=== PATIENT | male | born 1995 | race Caucasian/White ===

== ENCOUNTER 2016-12-09 08:55 | Emergency (ER) | payer BC ==
[2016-12-09] MEDS ORDERED: Acetaminophen TAB* 325 MG PO ONE (10:39)
--- NOTE | 2016-12-09 10:46 | UC ---
FLU HPI - HPI Summary HPI Summary: 21 male presents with complaints of fever/chills, body aches, cough, sinus pressure, nasal congestion and mild sore throat that began Friday morning . Mother states his temperature yesterday morning to be 101 F and this morning 103 F. He also has general malaise. Also complains of feeling like something is stuck in his throat and pressure behind his eye. Took ibuprofen last dose around 7am this morning and had some relief. Denies nausea, vomiting, diarrhea and difficulty breathing. No known sick contacts. Did not have the the flu shot. - History of Current Complaint Chief Complaint: UCGeneralIllness Stated Complaint: FEVER COUGH SORE THROAT Time Seen by Provider: 12/09/16 09:56 Hx Obtained From: Patient, Family/Ski Instructor - mother Onset/Duration: Sudden Onset, Worse Since Severity Currently: Mild Severity Initially: Moderate Pain Intensity: 4 Pain Scale Used: 0-10 Numeric Associated Signs & Symptoms: Positive: Fever, T Max - 103, Myalgia, Cough, Sore Throat, Nasal Congestion - sinus pressure, Headache - Allergy/Home Medications Allergies/Adverse Reactions: Allergies Allergy/AdvReac Type Severity Reaction Status Date / Time Codeine Allergy Severe Hives Verified 04/16/14 14:30 opiates Allergy Unknown See Comment Uncoded 12/09/16 10:03 Home Medications: Home Medications Ibuprofen TAB* [Motrin TAB* 800 MG] 800 mg PO Q24HR PRN 12/09/16 [History Confirmed 12/09/16] [id number]-[id number] [Nyquil Severe Cold/Flu 5-6.25-10-325 mg/15Ml] 1 liq PO QPM PRN 12/09/16 [History Confirmed 12/09/16] PMH/Surg Hx/FS Hx/Imm Hx Endocrine History Of: Denies: Diabetes, Thyroid Disease Cardiovascular History Of: Denies: Cardiac Disorders, Hypertension, Pacemaker/ICD Respiratory History Of: Reports: Asthma - as child Denies: COPD GI/ History Of: Denies: Ulcer - Surgical History Surgical History: None Surgery Procedure, Year, and Place: T & A - Family History Known Family History: Positive: None - Social History Alcohol Use: None Substance Use Type: None Smoking Status (MU): Never Smoked Tobacco Have You Smoked in the Last Year: No - Immunization History Vaccination Up to Date: Yes Review of Systems Constitutional: Fever, Chills, Fatigue Skin: Negative Eyes: Negative ENT: Sore Throat, Ear Ache, Nasal Discharge, Other - pressure behind the eyes and sinuses Respiratory: Cough - productive with phlegm, no color Cardiovascular: Negative Gastrointestinal: Negative Genitourinary: Negative Motor: Negative Musculoskeletal: Myalgia Neurological: Headache Psychological: Negative All Other Systems Reviewed And Are Negative: Yes Physical Exam Triage Information Reviewed: Yes Appearance: No Pain Distress, Well-Nourished, Ill-Appearing Vital Signs: Initial Vital Signs Temp 99.1 F 12/09/16 09:54 Pulse 118 12/09/16 09:54 Resp 18 12/09/16 09:54 BP 109/65 12/09/16 09:54 Pulse Ox 96 12/09/16 09:54 tachycardia noted. Vital Signs Reviewed: Yes Eyes: Positive: Conjunctiva Clear ENT: Positive: Normal ENT inspection, Hearing grossly normal, Pharyngeal erythema, Nasal congestion, Nasal drainage, TMs normal. Negative: TM red, Tonsillar swelling, Tonsillar exudate Dental: Positive: Percussion Tenderness @ - frontal and maxillary sinuses, Cervical Lymphadenopathy Neck: Positive: Supple, Nontender Respiratory: Positive: Chest non-tender, Lungs clear, Normal breath sounds, No respiratory distress, No accessory muscle use Cardiovascular: Positive: RRR, No Murmur, Pulses Normal, Brisk Capillary Refill Abdominal Exam: Normal Abdomen Description: Positive: Nontender, No Organomegaly, Soft Bowel Sounds: Positive: Present Musculoskeletal: Positive: Strength Intact, ROM Intact Neurological Exam: Normal Psychological Exam: Normal Skin Exam: Normal Flu Course/Dx - Course Course Of Treatment: given dose of tylenol due to last dose being around 7 am to keep fever down. influenxa culture obtained and was positive. with symptoms beginning less than 48 hours ago will be treated with Tamiflu. Continue Ibuprofen/Tylenol strictly every 4 hours for fever. - Differential Dx/Diagnosis Differential Diagnosis/HQI/PQRI: Bronchitis, Influenza, Upper Respiratory Infection, Other - sinusitis Provider Diagnoses: influenza A Discharge - Discharge Plan Condition: Stable Disposition: HOME Prescriptions: Oseltamivir CAP* [Tamiflu CAP*] 75 mg PO BID #10 cap Patient Education Materials: Influenza (ED) Forms: *School Release Referrals: Renny Cedillo MD [Primary Care Provider] - Additional Instructions: Take prescribed Tamiflu for the next 5 days. Continue taking Tylenol/Ibuprofen for the next few days every 4 hours for fever and aches. You may alternate them. Get plenty of rest and drink plenty of fluids. Remember the flu is very contagious, wash hands frequently.
[2016-12-09 11:12] VITALS: BP 121/77
== END 2016-12-09 11:20 | disposition home or self-care (01) ==
LOC: UCCORT 08:55
DX: J10.1 Influenza due to other identified influenza virus with other respiratory manifestations (principal); Z88.5 Allergy status to narcotic agent
CPT/HCPCS: 87502; 99212; A9270-GY; G0463

== ENCOUNTER 2019-08-02 12:26 | Emergency (ER) | payer BC, OTHER ==
[2019-08-02 13:57] VITALS: BP 127/67
--- NOTE | 2019-08-02 14:29 | UC ---
Skin Complaint HPI - HPI Summary HPI Summary: 24-year-old male presents with complaints of a tick bite to the top of his head. States he discovered the tick last evening and removed immediately. Reports he was last in the [place]. Tick was not engorged at time of removal. Denies fever, chills, rash, flu-like illness, fatigue, muscle aches, joint pain or swelling. - History of Current Complaint Chief Complaint: UCSkin Time Seen by Provider: 08/02/19 14:19 Stated Complaint: TICK BITE Hx Obtained From: Patient Pain Intensity: 0 - Allergy/Home Medications Allergies/Adverse Reactions: Allergies Allergy/AdvReac Type Severity Reaction Status Date / Time codeine Allergy Hives Verified 08/02/19 13:58 opiate Allergy Hives Uncoded 08/02/19 13:58 Home Medications: Home Medications NK [No Home Medications Reported] 08/02/19 [History Confirmed 08/02/19] PMH/Surg Hx/FS Hx/Imm Hx Previously Healthy: Yes - Denies significant PMH - Surgical History Surgical History: Yes Surgery Procedure, Year, and Place: T & A - Family History Known Family History: Positive: Non-Contributory - Social History Occupation: Student Lives: With Family Alcohol Use: None Substance Use Type: None Smoking Status (MU): Never Smoked Tobacco Have You Smoked in the Last Year: No - Immunization History Vaccination Up to Date: Yes Review of Systems All Other Systems Reviewed And Are Negative: Yes Constitutional: Negative: Fever, Chills Skin: Negative: Rash Respiratory: Positive: Negative Cardiovascular: Positive: Negative Gastrointestinal: Positive: Negative Genitourinary: Positive: Negative Musculoskeletal: Negative: Arthralgia, Myalgia Neurological: Positive: Negative Is Patient Immunocompromised?: No Physical Exam - Summary Physical Exam Summary: GENERAL APPEARANCE: Well developed, well nourished, alert and cooperative, and appears to be in no acute distress. HEAD: Atraumatic. Normocephalic. No lesions or rashes noted to scalp. CARDIAC: Normal S1 and S2. No S3, S4 or murmurs. Rhythm is regular. There is no peripheral edema, cyanosis or pallor. Extremities are warm and well perfused. Capillary refill is less than 2 seconds. Peripheral pulses intact. LUNGS: Clear to auscultation without rales, rhonchi, wheezing or diminished breath sounds. ABDOMEN: Positive bowel sounds. Soft, nondistended, nontender. No guarding or rebound. No masses or hepatosplenomegally. MUSKULOSKELETAL: ROM intact to all extremities. No joint erythema or tenderness. Normal muscular development. Normal gait. SKIN: Skin normal color, texture and turgor with no lesions or eruptions. Triage Information Reviewed: Yes Vital Signs: Initial Vital Signs Temp 97.8 F 08/02/19 13:54 Pulse 59 08/02/19 13:54 Resp 16 08/02/19 13:54 BP 127/67 08/02/19 13:54 Pulse Ox 100 08/02/19 13:54 Vital Signs Reviewed: Yes Course/Dx - Course Course Of Treatment: 24-year-old male presents with complaints of a tick bite to the top of his head. States he discovered the tick last evening and removed immediately. Reports he was last in [place]. Tick was not engorged at time of removal. Denies fever, chills, rash, flu-like illness, fatigue, muscle aches, joint pain or swelling. Afebrile. Vital signs stable. Patient's exam was overall unremarkable. Discussed the patient that based on his history that there was an extremely small chance of transmission of Lyme disease and therefore recommending watchful waiting at this time. He is to follow-up with his primary care provider as needed. I reviewed the signs and symptoms of Lyme disease, anticipatory guidance, and warning symptoms with the patient. Verbalizes understanding and agrees with plan of care. - Differential Diagnoses - Skin Complaint Differential Diagnoses: Local Allergic Reaction, Tick Born Illness - Diagnoses Provider Diagnosis: Tick bite of scalp Discharge ED - Sign-Out/Discharge Documenting (check all that apply): Patient Departure All imaging exams completed and their final reports reviewed: No Studies - Discharge Plan Condition: Stable Disposition: HOME Patient Education Materials: Tick Bite (ED) Referrals: Renny Cedillo MD [Primary Care Provider] - If Needed Additional Instructions: Ticks transmit infection only after they have attached and then taken a blood meal from their new host. A tick that has not attached cannot not pass any infection. Since the deer tick that transmits Lyme disease typically feeds for more than 36 hours before transmitting the organisim that causes Lyme disease, the risk of acquiring Lyme disease from an tick bite is extremely small, even in an area where the disease is common. There is no benefit of blood testing for Lyme disease at the time of the tick bite because even people who become infected will not have a positive blood test until approximately two to six weeks after the tick bite. To try to avoid getting bitten by a tick, you can: * Wear shoes, long-sleeved shirts, and long pants when you go outside. Keep ticks away from your skin by tucking your pants into your socks. * Wear light colors so you can spot any ticks that get on your clothes. * Wear bug spray or cream that contains DEET. (Do not use DEET on babies younger than 2 months.) On your clothes and gear, you can use bug repellents that have a chemical called "permethrin." * Shower within 2 hours of being outdoors if you think you have been in an area where there are ticks. * Put dry clothes briefly (for about 4 minutes) in a dryer after being outdoors. * Check your clothes and body for ticks after being outdoors. Be sure to check your scalp, waist, armpits, groin, and backs of your knees. Check your children , too. After a tick bite, you will need to monitor for signs of Lyme disease over the nexter several weeks even if you have been given antibiotics to prevent the infection. Seek immediate medical attention if you develop a bullseye rash, fever, flu-like symptoms including headache, stiff neck, fatigue, muscle aches, joint pain or swelling. - Billing Disposition and Condition Condition: STABLE Disposition: Home
== END 2019-08-02 14:44 | disposition home or self-care (01) ==
LOC: UCCORT 12:26
DX: S00.06XA Insect bite (nonvenomous) of scalp, initial encounter (principal); Z88.5 Allergy status to narcotic agent; W57.XXXA Bitten or stung by nonvenomous insect and other nonvenomous arthropods, initial encounter; Y92.9 Unspecified place or not applicable
CPT/HCPCS: 99211; G0463